=== PATIENT | male | born 1940 | race Caucasian/White ===

== ENCOUNTER 2017-11-29 09:28 | Inpatient (IN) | payer MEDICARE, OTHER, MEDICAID ==
[2017-11-29 09:51] LABS: ADD MAN DIFF? NO
[2017-11-29 09:55] LABS: WHITE BLOOD COUNT 7.3 10^3/ul (4.8-10.8)
[2017-11-29 09:55] LABS: BASOPHILS % 0.4 % (0.0-2.0); EOSINOPHILS # 0.2 10^3/ul (0.0-0.5); EOSINOPHILS % 2.6 % (0.0-7.0); HEMATOCRIT 39.3 % (42.0-52.0); HEMOGLOBIN 13.9 g/dl (14.0-18.0); LYMPHOCYTES # 1.4 10^3/ul (0.8-2.9); LYMPHOCYTES % 19.5 % (15.0-51.0); MEAN CORPUSCULAR HEMOGLOBIN 32.6 pg (29.0-33.0); MEAN CORPUSCULAR HGB CONC 35.4 g/dl (32.0-37.0); MEAN CORPUSCULAR VOLUME 92.3 fl (82.0-101.0); MEAN PLATELET VOLUME 10.4 fl (7.4-10.4); MONOCYTE # 0.5 10^3/ul (0.3-0.9); NEUTROPHIL # 5.2 10^3/ul (1.6-7.5); NEUTROPHILS % 70.2 % (39.0-77.0); PLATELET COUNT 186 10^3/UL (140-415); RED BLOOD COUNT 4.26 10^6/ul (4.70-6.10); RED CELL DISTRIBUTION WIDTH 12.3 % (11.5-14.5)
[2017-11-29] MEDS ORDERED: niCARdipine-NS 0.1MG/ML DRIP 200 ML IV (10:09)
[2017-11-29] MEDS: SOD CHLORIDE 0.9% 1,000 ML IV (10:12)
[2017-11-29 10:14] LABS: ANION GAP 16 (8-16); BLOOD UREA NITROGEN 22 mg/dl (7-20); CALCIUM 9.4 mg/dl (8.4-10.2); CARBON DIOXIDE 27 mmol/L (21-31); CHLORIDE 107 mmol/L (97-110); CHOL/HDL RATIO 3.5 RATIO; CHOLESTEROL 123 mg/dl (100-200); CREATININE 1.17 mg/dl (0.61-1.24); GLUCOSE 88 mg/dl (70-220); HDL CHOLESTEROL 35 mg/dl (31-75); LDL CHOLESTEROL,CALCULATED 67 mg/dl; POTASSIUM 4.5 mmol/L (3.5-5.1); SODIUM 145 mmol/L (135-144); TRIGLYCERIDES 106 mg/dl (0-149)
[2017-11-29 10:18] LABS: INR 0.99; PROTIME 13.2 Sec (11.9-14.9)
[2017-11-29 10:29] LABS: TROPONIN-I < 0.012 ng/ml (0.00-0.12)
[2017-11-29] MEDS: SOD CHLORIDE 0.9% 100 ML (10:30)
[2017-11-29] MEDS: IOHEXOL 100 ML (10:30)
[2017-11-29 11:33] LABS: HEMOGLOBIN A1C 5.1 % (0-5.9)
[2017-11-29] MEDS ORDERED: ACETAMINOPHEN 325 MG TAB PO (15:00)
[2017-11-29] MEDS ORDERED: LABETALOL HCL 20MG INJ IV (15:00)
[2017-11-29] MEDS: LABETALOL HCL 20MG INJ IV (18:46)
[2017-11-29] MEDS: SALINE 0.65% 45 ML NAS SPRAY NASAL (21:00)
[2017-11-29] MEDS: ATORVASTATIN 10 MG TAB PO (23:47)
[2017-11-30] MEDS: VALSARTAN 160 MG TAB PO (08:17)
[2017-11-30] MEDS: AMLODIPINE 10 MG TAB PO (08:18)
[2017-11-30] MEDS: FAMOTIDINE 20 MG TAB PO (08:18)
[2017-11-30] MEDS: DOCUSATE SODIUM 100 MG CAP PO (08:18)
[2017-11-30] MEDS: OLOPATADINE 0.2% (ONCE A DAY) OPHTH DROP 2.5 ML BOTH EYES (08:19)
[2017-11-30] MEDS: SALINE 0.65% 45 ML NAS SPRAY NASAL (08:19)
[2017-11-30] MEDS: LABETALOL HCL 20MG INJ IV (12:03)
== END 2017-11-30 16:31 | disposition home health service (06) | DRG 65 ==
LOC: MS4 12:51 → E/R 09:28
DX: I62.9 Nontraumatic intracranial hemorrhage, unspecified (principal); G81.91 Hemiplegia, unspecified affecting right dominant side; I16.1 Hypertensive emergency; R47.81 Slurred speech; I12.9 Hypertensive chronic kidney disease with stage 1 through stage 4 chronic kidney disease, or unspecified chronic kidney disease; N18.9 Chronic kidney disease, unspecified; N40.0 Benign prostatic hyperplasia without lower urinary tract symptoms; K21.9 Gastro-esophageal reflux disease without esophagitis; R42 Dizziness and giddiness; L72.9 Follicular cyst of the skin and subcutaneous tissue, unspecified; Z86.73 Personal history of transient ischemic attack (TIA), and cerebral infarction without residual deficits
CPT/HCPCS: 36415; 70450; 70496; 70498; 71045; 80048; 80061; 82962; 83036; 84484; 85025; 85610; 85730; 86850; 86900; 86901; 92610; 96374; 96375; 99291-25

== ENCOUNTER 2019-01-01 10:15 | Emergency (ER) | payer MEDICARE, OTHER ==
[2019-01-01 13:41] LABS: ADD MAN DIFF? NO
[2019-01-01] MEDS: IPRATROPIUM (NEB) 0.5 MG/2.5 ML AMP NEB (13:47)
[2019-01-01] MEDS: ALBUTEROL 0.083% (NEB) 2.5 MG/3 ML AMP NEB (13:47)
[2019-01-01 13:58] LABS: ADD UMIC YES; UR ASCORBIC ACID NEGATIVE (NEGATIVE); UR BILIRUBIN (Dip) NEGATIVE (NEGATIVE); UR BLOOD (Dip) NEGATIVE (NEGATIVE); UR CLARITY CLEAR (CLEAR); UR COLOR YELLOW (YELLOW); UR GLUCOSE (Dip) NEGATIVE (NEGATIVE); UR KETONES (Dip) NEGATIVE (NEGATIVE); UR LEUKOCYTE ESTERASE (Dip) TRACE Leu/ul (NEGATIVE); UR NITRITE (Dip) NEGATIVE (NEGATIVE); UR RBC 6 /HPF (0-5); UR SPECIFIC GRAVITY (Dip) 1.016 (1.003-1.030); UR TOTAL PROTEIN (Dip) NEGATIVE (NEGATIVE); UR UROBILINOGEN (Dip) NEGATIVE (NEGATIVE); UR WBC 11 /HPF (0-5)
[2019-01-01 14:06] LABS: INR 1.01; PROTIME 13.4 Sec (11.9-14.9)
[2019-01-01 14:07] LABS: PARTIAL THROMBOPLASTIN TIME 26.9 Sec (23.0-35.0)
[2019-01-01 14:10] LABS: ALANINE AMINOTRANSFERASE 22 IU/L (13-69); ALBUMIN 3.9 g/dl (3.3-4.9); ALBUMIN/GLOBULIN RATIO 1.25; ALKALINE PHOSPHATASE 50 IU/L (42-121); ANION GAP 8 (5-13); ASPARTATE AMINO TRANSFERASE 20 IU/L (15-46); BILIRUBIN,INDIRECT 0.4 mg/dl (0-1.1); BILIRUBIN,TOTAL 0.4 mg/dl (0.2-1.3); BLOOD UREA NITROGEN 24 mg/dl (7-20); CALCIUM 9.7 mg/dl (8.4-10.2); CARBON DIOXIDE 23 mmol/L (21-31); CHLORIDE 111 mmol/L (97-110); CHOL/HDL RATIO 4.2 RATIO; CHOLESTEROL 124 mg/dl (100-200); CREATINE KINASE 90 IU/L (23-200); CREATININE 1.16 mg/dl (0.61-1.24); GLUCOSE 93 mg/dl (70-220); HDL CHOLESTEROL 29 mg/dl (31-75); LDL CHOLESTEROL,CALCULATED 70 mg/dl; LIPASE 165 U/L (23-300); SODIUM 142 mmol/L (135-144); TRIGLYCERIDES 125 mg/dl (0-149)
[2019-01-01 14:12] LABS: BASOPHILS % 0.3 % (0.0-2.0); EOSINOPHILS # 0.2 10^3/ul (0.0-0.5); EOSINOPHILS % 1.9 % (0.0-7.0); HEMATOCRIT 36.7 % (42.0-52.0); HEMOGLOBIN 12.3 g/dl (14.0-18.0); LYMPHOCYTES # 1.4 10^3/ul (0.8-2.9); LYMPHOCYTES % 17.8 % (15.0-51.0); MEAN CORPUSCULAR HEMOGLOBIN 31.7 pg (29.0-33.0); MEAN CORPUSCULAR HGB CONC 33.5 g/dl (32.0-37.0); MEAN CORPUSCULAR VOLUME 94.6 fl (82.0-101.0); MEAN PLATELET VOLUME 11.3 fl (7.4-10.4); MONOCYTE # 0.6 10^3/ul (0.3-0.9); MONOCYTES % 7.7 % (0.0-11.0); NEUTROPHIL # 5.7 10^3/ul (1.6-7.5); NEUTROPHILS % 71.9 % (39.0-77.0); PLATELET COUNT 175 10^3/UL (140-415); RED BLOOD COUNT 3.88 10^6/ul (4.70-6.10); RED CELL DISTRIBUTION WIDTH 12.7 % (11.5-14.5)
[2019-01-01 14:27] LABS: CK INDEX 1.5
[2019-01-01 14:52] LABS: B-TYPE NATRIURETIC PEPTIDE 625 PG/ML (0-450); CK-MB 1.37 ng/ml (0.0-2.4); TROPONIN-I < 0.012 ng/ml (0.000-0.120)
== END 2019-01-01 16:30 | disposition home or self-care (01) ==
LOC: E/R 10:15
DX: R06.02 Shortness of breath (principal); I10 Essential (primary) hypertension; Z86.73 Personal history of transient ischemic attack (TIA), and cerebral infarction without residual deficits; Z79.82 Long term (current) use of aspirin
CPT/HCPCS: 36415; 71045; 80053; 80061; 81001; 82550; 82553; 83690; 83735; 83880; 84484; 85025; 85610; 85730; 93005; 94664; 99285-25